=== PATIENT | male | born 1960 | race African-American/Black ===

== ENCOUNTER 2017-02-26 17:49 | Emergency (ER) | payer MEDICAID ==
[~2017-02-26] VITALS: Ht 180.3 cm; Wt 81.2 kg
--- NOTE | 2017-02-26 18:24 | Emergency Room Report ---
History of Present Illness General Chief Complaint: Sore Throat Source: Patient Present Illness HPI 56 YO Male presents to the ED c/O 04/10 in severity right sided neck pain x 1 hour, acute onset after helping to move large/heavy TV. Denies trauma or fall otherwise. pt. states pain is exacerbated with turning his head or tilting his head back. denies PHIPPS, dizziness, syncope, or pulsations. Denies numbness tingling or loss of sensation or gross motor movements of the extremities, incontinence of bowel or bladder. Denies CP, Palpitations, LOC, AMS, Changes in Vision, Sensation, paresthesias, or a sudden severe headache. Allergies: Coded Allergies: No Known Allergies (Unverified , 02/26/17) Patient History Past Medical History: see triage record Past Surgical History: none Pertinent Family History: none Immunizations: UTD Reviewed Nursing Documentation: PMH: Agreed, PSxH: Agreed Nursing Documentation-PMH Past Medical History: No History, Except For Hx Hypertension: Yes Review of Systems All Other Systems: negative except mentioned in HPI Physical Exam Vital Signs Date Time Temp Pulse Resp B/P Pulse Ox O2 Delivery O2 Flow Rate FiO2 02/26/17 18:01 98.2 79 18 151/96 99 Room Air Sp02 EP Interpretation: reviewed, normal General Appearance: no apparent distress, alert, GCS 15, non-toxic Head: normocephalic, atraumatic Eyes: bilateral eye PERRL, bilateral eye normal inspection ENT: hearing grossly normal, normal pharynx, no angioedema, normal voice Neck: full range of motion, supple/symm/no masses Respiratory: chest non-tender, lungs clear, normal breath sounds, speaking full sentences Cardiovascular #1: regular rate, rhythm, no edema Musculoskeletal: back normal, gait/station normal, normal range of motion, tender - right SCM tenderness, no swelling, erythema, or nodules, no increased tenderness to palpation. Neurologic: alert, oriented x3, responsive, motor strength/tone normal, sensory intact, speech normal Psychiatric: judgement/insight normal, memory normal, mood/affect normal Skin: normal color, no rash, warm/dry, well hydrated Lymphatic: no adenopathy Medical Decision Making PA Attestation Dr. graham is my supervising Physician whom patient management has been discussed with. Diagnostic Impression: Primary Impression: Sternomastoid muscle strain Qualified Codes: S16.1XXA - Strain of muscle, fascia and tendon at neck level , initial encounter Additional Impression: Sternocleidomastoid muscle tenderness ER Course 56 YO Male presents to the ED c/O 04/10 in severity right sided neck pain x 1 hour, acute onset after helping to move large/heavy TV. pt. states pain is exacerbated with turning his head or tilting his head back. denies PHIPPS, dizziness , syncope, or pulsations. Denies numbness tingling or loss of sensation or gross motor movements of the extremities, incontinence of bowel or bladder. Denies CP, Palpitations, LOC, AMS, Changes in Vision, Sensation, paresthesias, or a sudden severe headache. Ddx considered but are not limited to Fracture, dislocation, contusion, Sprain/ Strain/Spasm Vital signs: are WNL, pt. is afebrile H&PE are most consistent with musculoskeletal injury will perform imaging to r/ o fractures/dislocations. ORDERS: - X-ray not required at this time. ED INTERVENTIONS: - DISCHARGE: At this time pt. is stable for d/c to home. Will provide printed patient care instructions, and any necessary prescriptions. Care plan and follow up instructions have been discussed with the patient prior to discharge. Last Vital Signs Date Time Temp Pulse Resp B/P Pulse Ox O2 Delivery O2 Flow Rate FiO2 02/26/17 18:01 98.2 79 18 151/96 99 Room Air Disposition: HOME, SELF-CARE Condition: Stable Scripts Cyclobenzaprine Hcl* (FLEXERIL*) 10 Mg Tablet 10 MG ORAL THREE TIMES A DAY for 7 Days, #21 TAB Prov: Kavya [email or web address].[email or web address] 02/26/17 Ibuprofen* (MOTRIN*) 600 Mg Tablet 600 MG ORAL THREE TIMES A DAY, #30 TAB 0 Refills Prov: Kavya Vallecillo P.Neeru 02/26/17 Patient Instructions: Muscle Strain, [id number] Additional Instructions: Take medications as directed. Follow up with a Primary Care Provider in 3-5 days, even if your symptoms have resolved. --Please review list of primary care clinics, if you do not already have a primary care provider Return sooner to ED if new symptoms occur, or current symptoms become worse. Do not drink alcohol, drive, or operate heavy machinery while taking Muscle relaxer as this may cause drowsiness. - Please note that this Emergency Department Report was dictated using [employer] technology software, occasionally this can lead to erroneous entry secondary to interpretation by the dictation equipment. Kavya Vallecillo Feb 26, 2017 18:24
[2017-02-26] MEDS ORDERED: IBUPROFEN600 MG ORAL (18:29)
[2017-02-26] MEDS ORDERED: CYCLOBENZAPRINE10 MG ORAL (18:29)
[2017-02-26 18:49] VITALS: BP 151/96
== END 2017-02-26 18:48 | disposition home or self-care (01) ==
LOC: EMR 18:20
DX: S16.1XXA Strain of muscle, fascia and tendon at neck level, initial encounter (principal); I10 Essential (primary) hypertension; X58.XXXA Exposure to other specified factors, initial encounter; Y92.9 Unspecified place or not applicable
CPT/HCPCS: 99284